=== PATIENT | male | born 1970 | race American Indian/Alaskan Native ===

== ENCOUNTER 2019-07-02 14:17 | Emergency (ER) | payer OTHER ==
[2019-07-02 15:13] VITALS: BP 142/95
--- NOTE | 2019-07-02 15:36 | Emergency Department Report ---
Chief Complaint: Alcohol Stated Complaint: HBP/ETOH TREATMENT Time Seen by Provider: 07/02/19 15:18 - HPI History of Present Illness: Patient was brought to the emergency department for alcohol abuse by his . Patient's states he has been altered and unsteady on his feet when he drinks. He drinks beer and liquor. Before I was able to see the patient patient stated that he wanted to leave and did not want to have any treatment. He was alert and oriented x3 and states he will not be driving. - ROS Review of Systems: Unable to assess - Exam Vital Signs: Vital Signs 07/02/19 07/02/19 14:30 15:11 Temperature 97.8 F Pulse Rate 104 H 94 H Respiratory 20 16 Rate Blood Pressure 145/112 142/95 [Right] O2 Sat by Pulse 97 96 Oximetry Physical Exam: Patient is speaking in full sentences and is able to ambulate on his own. MSE screening note: Focused history and physical exam performed. Due to findings the following was ordered: ED Medical Decision Making - Medical Decision Making Patient is leaving AGAINST MEDICAL ADVICE at this time. ED Disposition for MSE Clinical Impression: Alcohol abuse Disposition: DC-07 LEFT AGAINST MED ADVICE Is pt being admited?: No Does the pt Need Aspirin: No Condition: Stable Time of Disposition: 15:35
[2019-07-02 17:06] LABS: Basophils % (Auto) 0.7 % (0.0-1.8); Eosinophils % (Auto) 0.6 % (0.0-4.3); Hematocrit 37.3 % (35.5-45.6); Hemoglobin 12.3 gm/dl (11.8-15.2); Lymphocytes # (Auto) 1.2 K/mm3 (1.2-5.4); Lymphocytes % (Auto) 24.4 % (13.4-35.0); Mean Corpuscular HGB Conc 33 % (32-34); Mean Corpuscular Volume 86 fl (84-94); Monocytes # (Auto) 0.4 K/mm3 (0.0-0.8); Monocytes % (Auto) 7.5 % (0.0-7.3); Platelet Count 250 K/mm3 (140-440); Red Blood Count 4.36 M/mm3 (3.65-5.03); Red Cell Distribution Width 18.1 % (13.2-15.2)
[2019-07-02 17:14] LABS: Bilirubin,Urine NEG (Negative); Blood,Urine NEG (Negative); Color,Urine Straw (Yellow); Mucus,Urine FEW /HPF; Protein,Urine <15 mg/dL mg/dL (Negative); Urobilinogen,Urine < 2.0 mg/dL (<2.0); WBC,Urine < 1.0 /HPF (0.0-6.0)
[2019-07-02 17:19] LABS: Amphetamine Screen,Urine PRESUMPTIVE NEGATIVE; Benzodiazepines Screen,Urine PRESUMPTIVE NEGATIVE; Cannabinoid Screen,Urine PRESUMPTIVE NEGATIVE; Cocaine Screen,Urine PRESUMPTIVE NEGATIVE; Methadone Screen,Urine PRESUMPTIVE NEGATIVE; Opiate Screen,Urine PRESUMPTIVE NEGATIVE
[2019-07-02 17:27] LABS: Alanine Aminotransferase 30 units/L (7-56); Albumin 4.4 g/dL (3.9-5); BUN/Creatinine Ratio 9; Blood Urea Nitrogen 9 mg/dL (9-20); Hemolysis Index 6
== END 2019-07-02 17:35 | disposition left against medical advice (07) ==
LOC: ED 14:17
DX: F10.10 Alcohol abuse, uncomplicated (principal); Z88.8 Allergy status to other drugs, medicaments and biological substances
CPT/HCPCS: 36415; 80053; 80307; 80320; 81001; 85025; G0480